=== PATIENT | female | born 1985 | race Caucasian/White ===

== ENCOUNTER 2018-09-15 21:35 | Emergency (ER) | payer OTHER ==
[2018-09-15 21:50] VITALS: RESP 16; TEMP 98.4; O2SAT 100
--- NOTE | 2018-09-15 23:04 | ED PDOC ---
Upper Extremity Pain/Injury Time Seen by Provider: 09/15/18 21:58 Chief Complaint (Nursing): Upper Extremity Problem/Injury Chief Complaint (Provider): Left elbow pain after fall History Per: Patient History/Exam Limitations: no limitations Onset/Duration Of Symptoms: Mins Current Symptoms Are (Timing): Still Present Additional Complaint(s): 32 yo female with history of left nursemaids elbow Past Medical History Vital Signs: Last Vital Signs Temp 98.4 F 09/15/18 21:47 Pulse 62 09/15/18 21:47 Resp 16 09/15/18 21:47 BP 110/98 H 09/15/18 21:47 Pulse Ox 100 09/15/18 21:47 - Surgical History Surgical History: Appendectomy - Immunization History Hx Influenza Vaccination: No Hx Pneumococcal Vaccination: No - Allergies Allergies/Adverse Reactions: Allergies Allergy/AdvReac Type Severity Reaction Status Date / Time No Known Allergies Allergy Verified 09/15/18 22:26 - ECG O2 Sat by Pulse Oximetry: 100 Disposition - Clinical Impression Clinical Impression: Elbow fracture - Disposition Referrals: [facility] [Outside] Misbah Perea III, MD [Staff Provider] - Disposition: Transfer of Care Disposition Time: 23:04 Condition: STABLE Additional Instructions: FOLLOW UP WITH ORTHOPEDIST FOR FURTHER EVALUATION RETURN TO ED IMMEDIATELY IF SYMPTOMS WORSEN KATIE MILLS, thank you for letting us take care of you today. Your provider was Smitha Kramer MD and you were treated for FALL: LEFT ARM INJURY. The emergency medical care you received today was directed at your acute symptoms. If you were prescribed any medication, please fill it and take as directed. It may take several days for your symptoms to resolve. Return to the Emergency Department if your symptoms worsen, do not improve, or if you have any other problems. Please contact your doctor or call one of the physicians/clinics you have been referred to that are listed on the Patient Visit Information form that is included in your discharge packet. Bring any paperwork you were given at discharge with you along with any medications you are taking to your follow up visit. Our treatment cannot replace ongoing medical care by a primary care provider outside of the emergency department. Thank you for allowing the [facility] team to be part of your care today. If you had an X-Ray or CT scan: A Radiologist will review the ED reading if any change in treatment is needed we will contact you. If you had a blood, urine, or wound culture: It will take several days for the results, if any change in treatment is needed we will contact you. If you had an STI test: It will take 48 hours for the results. Please call after 1 week if you have not heard back. Instructions: Elbow Fracture (DC) Forms: [facility] (Khmer), [facility] ED School/Work Excuse Print Language: MOHAWK
--- NOTE | 2018-09-16 00:12 | ED PDOC ---
- ECG O2 Sat by Pulse Oximetry: 100 - Progress ED Course And Treament: 2100 Signed out to me pending x-ray report. 0005 Elbow x-ray: elbow joint effusion with anterior sail sign; findings compatible with dislocation at the radio-humeral joint; consider f/u CT Results d/w Dr. Estrada who states pt. can f/u outpatient for CT. Results d/w patient who states she lives in [place] and prefers to f/u with an orthopedist in [place] [facility]. Advised to contact ortho tomorrow without fail. Copy of x- rays given to patient in CD form. Elbow immobilized in orthoglass elbow splint applied by PA. Shoulder sling placed. Post splint placement exam: cap refill < 2 seconds; able to actively move all fingers. Disposition - Clinical Impression Clinical Impression: Elbow fracture - POA Present On Arrival: None - Disposition Referrals: [facility] [Outside] Misbah Perea III, MD [Staff Provider] - Disposition: Routine/Home Disposition Time: 00:11 Condition: STABLE Additional Instructions: FOLLOW UP WITH ORTHOPEDIST FOR FURTHER EVALUATION RETURN TO ED IMMEDIATELY IF SYMPTOMS WORSEN KATIE MILLS, thank you for letting us take care of you today. Your provider was Smitha Kramer MD and you were treated for FALL: LEFT ARM INJURY. The emergency medical care you received today was directed at your acute symptoms. If you were prescribed any medication, please fill it and take as directed. It may take several days for your symptoms to resolve. Return to the Emergency Department if your symptoms worsen, do not improve, or if you have any other problems. Please contact your doctor or call one of the physicians/clinics you have been referred to that are listed on the Patient Visit Information form that is included in your discharge packet. Bring any paperwork you were given at discharge with you along with any medications you are taking to your follow up visit. Our treatment cannot replace ongoing medical care by a primary care provider outside of the emergency department. Thank you for allowing the [facility] team to be part of your care today. If you had an X-Ray or CT scan: A Radiologist will review the ED reading if any change in treatment is needed we will contact you. If you had a blood, urine, or wound culture: It will take several days for the results, if any change in treatment is needed we will contact you. If you had an STI test: It will take 48 hours for the results. Please call after 1 week if you have not heard back. Instructions: Elbow Fracture (DC) Forms: [facility] (Equ[place]an), [facility] ED School/Work Excuse Print Language: YI
[2018-09-16 00:26] VITALS: BP 108/82; PULSE 66
--- NOTE | 2018-09-16 13:22 | RAD ---
Date of service: 09/15/2018 PROCEDURE: Radiographs of the left elbow. HISTORY: left elbow pain COMPARISON: No prior. FINDINGS: BONES: Normal. No fracture. JOINTS: Complete ventral dislocation of radial head. SOFT TISSUES: Normal. JOINT EFFUSION: There is a small joint effusion noted. Likely hemarthrosis. OTHER FINDINGS: None IMPRESSION: Ventral dislocation of radial head. The preliminary findings for this examination were reported by [facility] Radiology at 11:23 p.m. on 09/15/2018. There is concurrence of this report with the preliminary findings.
== END 2018-09-16 00:22 | disposition home or self-care (01) ==
LOC: H.ER 21:35
DX: S53.002A Unspecified subluxation of left radial head, initial encounter (principal); W19.XXXA Unspecified fall, initial encounter; Y92.89 Other specified places as the place of occurrence of the external cause

== ENCOUNTER 2018-10-11 21:21 | Emergency (ER) | payer OTHER ==
[2018-10-11 21:35] VITALS: BP 122/75; PULSE 65; RESP 15; TEMP 98.2; O2SAT 100
[2018-10-11] MEDS ORDERED: Tdap Vaccine 0.5 ml Vial (10-64 yrs) IM ONE ×2 (21:43→21:57)
[2018-10-11] MEDS ORDERED: Absorbable Gelatin Sponge Size 12-7 TP ONE (21:43)
[2018-10-11] MEDS ORDERED: Absorbable Gelatin Sponge Size 12-7 ONE (21:57)
--- NOTE | 2018-10-11 23:34 | ED PDOC ---
HPI: Skin/Bite Injury Time Seen by Provider: 10/11/18 21:40 Chief Complaint (Nursing): Abnormal Skin Integrity History Per: Patient Additional Complaint(s): Pt. states earlier today she accidentally cut her L 5th digit with a knife at home. Denies numbness, tingling, other injury. Tetanus is not UTD. Past Medical History Reviewed: Historical Data, Nursing Documentation, Vital Signs Vital Signs: Last Vital Signs Temp 98.2 F 10/11/18 21:32 Pulse 65 10/11/18 21:32 Resp 15 10/11/18 21:32 BP 122/75 10/11/18 21:32 Pulse Ox 100 10/11/18 21:32 - Surgical History Surgical History: Appendectomy - Family History Family History: States: No Known Family Hx - Immunization History Hx Influenza Vaccination: No Hx Pneumococcal Vaccination: No - Allergies Allergies/Adverse Reactions: Allergies Allergy/AdvReac Type Severity Reaction Status Date / Time No Known Allergies Allergy Verified 10/11/18 21:35 Review of Systems ROS Statement: Except As Marked, All Systems Reviewed And Found Negative Physical Exam - Physical Exam Appears: Positive for: Well, Non-toxic, No Acute Distress Skin: Positive for: Normal Color, Warm. Negative for: Rash Pulses-Radial (L): 2+ Pulses-Radial (R): 2+ Extremity: Positive for: Other (L 5th digit with superficial avulsion on distal phalanx with non-pulsatile active bleeding - nail intact, cap refill < 2 seconds) - ECG O2 Sat by Pulse Oximetry: 100 - Progress ED Course And Treament: Wound irrigated heavily with NS. Gelfoam dressing applied. DSD applied. Bleeding stopped. Tetanus prophylaxis administered. Disposition - Clinical Impression Clinical Impression: Skin avulsion - Patient ED Disposition Is Patient to be Admitted: No - Disposition Referrals: [facility] [Outside] Disposition: Routine/Home Disposition Time: 22:10 Condition: IMPROVED Additional Instructions: FOLLOW UP WITH PMD FOR FURTHER EVALUATION RETURN TO ED IMMEDIATELY IF SYMPTOMS WORSEN KATIE MILLS, thank you for letting us take care of you today. Your provider was Armando Dewitt MD and you were treated for LEFT HAND FINGER LACERATION. The emergency medical care you received today was directed at your acute symptoms. If you were prescribed any medication, please fill it and take as directed. It may take several days for your symptoms to resolve. Return to the Emergency Department if your symptoms worsen, do not improve, or if you have any other problems. Please contact your doctor or call one of the physicians/clinics you have been referred to that are listed on the Patient Visit Information form that is included in your discharge packet. Bring any paperwork you were given at discharge with you along with any medications you are taking to your follow up visit. Our treatment cannot replace ongoing medical care by a primary care provider outside of the emergency department. Thank you for allowing the [facility] team to be part of your care today. If you had an X-Ray or CT scan: A Radiologist will review the ED reading if any change in treatment is needed we will contact you. If you had a blood, urine, or wound culture: It will take several days for the results, if any change in treatment is needed we will contact you. If you had an STI test: It will take 48 hours for the results. Please call after 1 week if you have not heard back. Instructions: Wound Care (DC) Forms: [facility] (Icelandic)
== END 2018-10-11 22:19 | disposition home or self-care (01) ==
LOC: H.ER 21:21
DX: S61.217A Laceration without foreign body of left little finger without damage to nail, initial encounter (principal); W26.0XXA Contact with knife, initial encounter; Y92.009 Unspecified place in unspecified non-institutional (private) residence as the place of occurrence of the external cause; Z23 Encounter for immunization